=== PATIENT | female | born 1950 | race Caucasian/White ===

== ENCOUNTER 2017-11-23 14:37 | Emergency (ER) | payer MEDICARE, MEDICAID ==
[~2017-11-23] VITALS: Ht 165.1 cm; Wt 125.0 kg
[~2017-11-23 14:37] MED LIST: ASPIRIN EC81 M1 PO; ATIVAN1 MG PO; CALCIUM 600+D T1 TA1 PO; CENTRUM SILVER1 TA2 PO; CHANTIX 1 MG TAB1 MG PO; DILAUDID2 MG PO; DOXYCYCLINE HY100 M2 PO; EFFEXOR100 MG PO; KLONOPIN1 MG PO; MAXZIDE-25 MG T1 TAB PO; METOPROLOL TART50 MG PO; PRILOSEC20 MG PO; VENTOLIN HFA18 GM INH
[2017-11-23 15:17] VITALS: Ht 165.1 cm; Wt 125.0 kg
[2017-11-23] MEDS ORDERED: BENZONATATE200 MG PO (15:19)
[2017-11-23] MEDS ORDERED: BUPROPION XL300 MG PO (15:19)
[2017-11-23] MEDS ORDERED: ADVAIR 250/501 DISK INH (15:20)
[2017-11-23] MEDS ORDERED: VALIUM10 MG PO (15:20)
[2017-11-23] MEDS ORDERED: FLUTICASONE PRO16 GM NASAL (15:20)
[2017-11-23] MEDS ORDERED: LASIX40 MG PO (15:21)
[2017-11-23] MEDS ORDERED: IPRAT-ALBUT 0.5-3 ML UPD (15:21)
[2017-11-23] MEDS ORDERED: PREDNISONE20 MG PO (15:22)
[2017-11-23] MEDS ORDERED: KLOR-CON 1010 MEQ PO (15:22)
[2017-11-23] MEDS ORDERED: NICODERM C1 PATCH .3 TRANSDERM (15:22)
[2017-11-23] MEDS ORDERED: PROTONIX40 MG PO (15:22)
[2017-11-23] MEDS ORDERED: SPIRIVA RESPIMAT4 G1 INH (15:23)
[2017-11-23] MEDS ORDERED: ZANAFLEX2 M1 PO (15:23)
[2017-11-23] MEDS ORDERED: REXULTI1 MG PO (15:23)
[2017-11-23] MEDS ORDERED: PROAIR HFA8.5 GM INH (15:23)
[2017-11-23] MEDS ORDERED: ULTRAM50 MG PO (15:24)
[2017-11-23] MEDS ORDERED: EFFEXOR75 MG PO (15:24)
[2017-11-23 16:16] LABS: BASOPHILS 0.3 % (0-2); EOSINOPHILS 4.4 % (0-7); HEMATOCRIT 37.5 % (36.0-48.0); HEMOGLOBIN 11.7 g/dL (12-16); IMMATURE GRANULOCYTES 0.8 % (0-5); LYMPHOCYTES 45.3 % (15-50); MCH 30.6 pg (26.0-34.0); MCHC 31.2 g/dL (31.0-37.0); MCV 98.2 fL (80.0-100.0); MEAN PLATELET VOLUME 9.1 fL (7.4-10.4); MONOCYTES 7.5 % (2-11); NEUTROPHILS 41.7 % (40-80); PLATELET COUNT 322 10x3/uL (130-400); RBC 3.82 10x6/uL (4.00-5.40); RDW 14.2 % (11.5-14.5); WBC 14.1 10x3/uL (4.8-10.8)
[2017-11-23 16:48] LABS: APPEARANCE CLEAR (CLEAR); BILIRUBIN NEGATIVE (NEGATIVE); COLOR YELLOW (YELLOW); GLUCOSE NEGATIVE (NEGATIVE); KETONE NEGATIVE (NEGATIVE); NITRITE NEGATIVE (NEGATIVE); PROTEIN NEGATIVE (NEGATIVE); UROBILINOGEN NORMAL (NORMAL)
[2017-11-23 16:56] LABS: ALBUMIN 3.2 g/dL (3.4-5.0); ALKALINE PHOSPHATASE 121 U/L (46-116); ALT (SGPT) 27 U/L (10-68); BILIRUBIN - TOTAL 0.13 mg/dL (0.2-1.3); CALC OSMOLALITY 290 mosm/kg (275-300); CALCIUM 8.5 mg/dL (8.5-10.1); CARBON DIOXIDE 34.8 mmol/L (21.0-32.0); CHLORIDE - SERUM 105 mmol/L (98-107); CREATININE - SERUM 1.2 mg/dL (0.6-1.3); GLUCOSE 77 mg/dL (74-106); POTASSIUM - SERUM 3.7 mmol/L (3.5-5.1); PROTEIN - SERUM 6.4 g/dL (6.4-8.2); SODIUM 144 mmol/L (136-145); UREA NITROGEN 26 mg/dL (7-18); eGFR NON AFRICAN AMERICAN 47 mL/min (90-120)
[2017-11-23 17:02] LABS: CREATINE KINASE 25 UL (21-215); LIPASE 98 U/L (73-393); PRO BNP 991 pg/mL (0-125); TROPONIN-I < 0.017 ng/mL (0.000-0.060)
[2017-11-23 18:00] VITALS: BP 124/62
== END 2017-11-23 18:04 | disposition home or self-care (01) ==
LOC: D.ER 14:37
PROVIDERS: Family Medicine
DX: J44.9 Chronic obstructive pulmonary disease, unspecified (principal); S22.059A Unspecified fracture of T5-T6 vertebra, initial encounter for closed fracture; X58.XXXA Exposure to other specified factors, initial encounter; Y93.9 Activity, unspecified; Y92.9 Unspecified place or not applicable; I10 Essential (primary) hypertension; K21.9 Gastro-esophageal reflux disease without esophagitis

== ENCOUNTER 2017-12-09 08:58 | Inpatient (IN) | payer MEDICARE, MEDICAID ==
[~2017-12-09] VITALS: Ht 165.1 cm; Wt 124.2 kg
[2017-12-09] VITALS (8 sets, daily range): BP systolic 115–172; BP diastolic 68–98
--- NOTE | ~2017-12-09 | EC ---
PATIENT:ABIMAEL BISWAS DATE OF SERVICE: 12/09/17 SEX: F MEDICAL RECORD: [id number] DATE OF : [birth year] LOCATION:D.M2 D.211 AGE OF PATIENT: 67 ADMISSION DATE: 12/09/17 REFERRING PHYSICIAN: INTERPRETING PHYSICIAN: ANNETTE LOVELACE MD ECHOCARDIOGRAM REPORT ECHO CHARGES 4 ECHO COMPLETE Date: 12/09 CLINICAL DIAGNOSIS: CHF ECHOCARDIOGRAPHIC MEASUREMENTS (adult normal given) AC root (d.<3.7cm) 3.3 cm LV Septum d (<1.2 cm> 1.3 cm Valve Excursion 1.3 cm LV Septum (systole) 2.2 cm Left Atria (s.<4.0cm> 2.8 cm LVPW d(<1.2cm) 1.5 cm RV (d.<2.3cm) 3.5 cm LVPW (sytole) 1.8 cm LV diastole(<5.6CM) 4.6 cm MV E-F(>70mm/sec) 1.9 cm LV systole 3.6 cm LVOT Diameter 2.3 cm MV exc.(>10mm) cm Est.ejection fraction (50-75%) % DOPPLER: LVIT cm/sec A 96 cm/sec E 53 cm/sec LA cm/sec RVSP 17 mmHg LVOT 111 cm/sec AOP1/2T m/s Asc. Ao 159 cm/sec RVOT 78 cm/sec RA cm/sec PA 86 cm/sec AV Gradient Peak 10.1 mmHg AV Mean 4.9 mmHg AV Area 2.5 cm MV Gradient Peak 4.59 mmHg MV Mean 1.69 mmHg MV Area cm COMMENTS: Saw Runner: Furnace Converter: 1 Dr. Lovelace TAPE# PACS Pericardial Effusion N DATE OF SERVICE: 12/09/2017 ECHOCARDIOGRAM FINDINGS: 1. Left ventricular chamber size is within normal limits. Left ventricular systolic function is normal. Overall ejection fraction estimated at 60%. 2. Left atrium, right atrium, and right ventricle chamber sizes are within normal limits. 3. Valvular structures have normal structure and motion. ECHOCARDIOGRAM REPORT [id number] ABIMAEL BISWAS 4. Doppler interrogation reveals no significant valvular insufficiency or stenosis. 5. No evidence of pericardial effusion or left ventricular thrombus. TRANSINT:[id number] Voice Confirmation ID: [id number] DOCUMENT ID: [id number] ANNETTE LOVELACE MD at 1230 CC: [id number] DICTATION DATE: 12/09/17 1551 GRADUATE TEACHING ASSOCIATE: 12/09/17 1648 ADM IN [place] [id number] [place] [id number]
[~2017-12-09 08:58] MED LIST changes: +ADVAIR 250/501 DISK INH; +BENZONATATE200 MG PO; +BUPROPION XL300 MG PO; +EFFEXOR75 MG PO; +FLUTICASONE PRO16 GM NASAL; +IPRAT-ALBUT 0.5-3 ML UPD; +KLOR-CON 1010 MEQ PO; +LASIX40 MG PO; +NICODERM C1 PATCH .3 TRANSDERM; +PREDNISONE20 MG PO; +PROAIR HFA8.5 GM INH; +PROTONIX40 MG PO; +REXULTI1 MG PO; +SPIRIVA RESPIMAT4 G1 INH; +ULTRAM50 MG PO; +VALIUM10 MG PO; +ZANAFLEX2 M1 PO
[2017-12-09 10:15] LABS: BASOPHILS 0.3 % (0-2); EOSINOPHILS 9.2 % (0-7); HEMATOCRIT 37.2 % (36.0-48.0); HEMOGLOBIN 11.9 g/dL (12-16); IMMATURE GRANULOCYTES 0.2 % (0-5); LYMPHOCYTES 19.4 % (15-50); MCH 30.7 pg (26.0-34.0); MCV 96.1 fL (80.0-100.0); MEAN PLATELET VOLUME 8.7 fL (7.4-10.4); MONOCYTES 2.6 % (2-11); NEUTROPHILS 68.3 % (40-80); PLATELET COUNT 260 10x3/uL (130-400); RBC 3.87 10x6/uL (4.00-5.40); RDW 13.5 % (11.5-14.5); WBC 9.3 10x3/uL (4.8-10.8)
[2017-12-09 10:36] LABS: ALBUMIN 3.3 g/dL (3.4-5.0); ANION GAP 8.3 mmol/L (8-16); BILIRUBIN - TOTAL 0.25 mg/dL (0.2-1.3); CALCIUM 9.1 mg/dL (8.5-10.1); CARBON DIOXIDE 32.9 mmol/L (21.0-32.0); CREATININE - SERUM 1.4 mg/dL (0.6-1.3); POTASSIUM - SERUM 4.2 mmol/L (3.5-5.1); PROTEIN - SERUM 7.3 g/dL (6.4-8.2)
[2017-12-09] MEDS ORDERED: EFFEXOR XR75 MG PO (19:53)
[2017-12-10 00:35] VITALS: BP 131/70
[2017-12-10 05:15] VITALS: BP 125/68
[2017-12-10 06:35] VITALS: BP 135/73; BMI 45.3
[2017-12-10 08:49] VITALS: BP 146/73
[2017-12-10 10:58] VITALS: BMI 45.2
[2017-12-10 11:16] VITALS: BP 126/76
[2017-12-10 12:36] VITALS: Ht 165.1 cm; Wt 124.2 kg
[2017-12-10 14:09] LABS: APPEARANCE CLEAR (CLEAR); BILIRUBIN NEGATIVE (NEGATIVE); COLOR YELLOW (YELLOW); GLUCOSE NEGATIVE (NEGATIVE); KETONE NEGATIVE (NEGATIVE); NITRITE NEGATIVE (NEGATIVE); PROTEIN NEGATIVE (NEGATIVE); SPECIFIC GRAVITY 1.015 (1.005-1.020); UROBILINOGEN NORMAL (NORMAL)
[2017-12-10 14:20] LABS: UDS - AMPHET NEGATIVE QUAL (NEGATIVE); UDS - BARB NEGATIVE QUAL (NEGATIVE); UDS - BENZO POSITIVE QUAL (NEGATIVE); UDS - COCAINE NEGATIVE QUAL (NEGATIVE); UDS - OPIATE POSITIVE QUAL (NEGATIVE); UDS - PCP NEGATIVE QUAL (NEGATIVE); UDS - THC NEGATIVE QUAL (NEGATIVE)
[2017-12-10 20:21] VITALS: BP 142/78
[2017-12-11 00:31] VITALS: BP 142/76
[2017-12-11 04:37] VITALS: BP 128/69
[2017-12-11 07:51] LABS: ANION GAP 13.4 mmol/L (8-16); BASOPHILS 0 % (0-2); CALCIUM 8.6 mg/dL (8.5-10.1); CARBON DIOXIDE 31.5 mmol/L (21.0-32.0); CREATININE - SERUM 1.6 mg/dL (0.6-1.3); EOSINOPHILS 0 % (0-7); HEMATOCRIT 34.3 % (36.0-48.0); IMMATURE GRANULOCYTES 0.2 % (0-5); LYMPHOCYTES 13.4 % (15-50); MCH 30.5 pg (26.0-34.0); MCHC 32.1 g/dL (31.0-37.0); MEAN PLATELET VOLUME 9.1 fL (7.4-10.4); NEUTROPHILS 82.4 % (40-80); POTASSIUM - SERUM 3.9 mmol/L (3.5-5.1); RBC 3.61 10x6/uL (4.00-5.40); RDW 13.8 % (11.5-14.5); WBC 11.6 10x3/uL (4.8-10.8)
[2017-12-11 07:52] VITALS: BP 148/85
[2017-12-11 07:53] LABS: PLATELET COUNT 321 10x3/uL (130-400)
[2017-12-11 12:15] VITALS: BP 128/73
[2017-12-11 16:12] VITALS: BP 155/91
[2017-12-11 21:39] VITALS: BP 164/83
[2017-12-12 01:29] VITALS: BP 130/85
[2017-12-12 04:30] VITALS: BP 138/76
[2017-12-12 04:52] LABS: BASOPHILS 0 % (0-2); EOSINOPHILS 0 % (0-7); HEMATOCRIT 35.1 % (36.0-48.0); HEMOGLOBIN 11.4 g/dL (12-16); IMMATURE GRANULOCYTES 0.6 % (0-5); LYMPHOCYTES 13.6 % (15-50); MCH 30.6 pg (26.0-34.0); MCHC 32.5 g/dL (31.0-37.0); MCV 94.1 fL (80.0-100.0); MONOCYTES 3.6 % (2-11); NEUTROPHILS 82.2 % (40-80); PLATELET COUNT 302 10x3/uL (130-400); RBC 3.73 10x6/uL (4.00-5.40); RDW 13.6 % (11.5-14.5); WBC 10.9 10x3/uL (4.8-10.8)
[2017-12-12 05:13] LABS: ANION GAP 13.2 mmol/L (8-16); CARBON DIOXIDE 31.7 mmol/L (21.0-32.0); CREATININE - SERUM 1.6 mg/dL (0.6-1.3); POTASSIUM - SERUM 3.9 mmol/L (3.5-5.1)
[2017-12-12 05:28] LABS: % SATURATION 15 % (15-55); IRON 61 ug/dl (35-150); TOTAL IRON BIND CAPACITY 392 ug/dl (260-445); UNSAT IRON BIND CAPACITY 331 ug/dl (150-375)
[2017-12-12 08:03] VITALS: BP 132/97
[2017-12-12 11:55] VITALS: BP 117/80
[2017-12-12 12:21] LABS: IMMUNOGLOBULIN A 202 mg/dL (87-352); IMMUNOGLOBULIN G 665 mg/dL (700-1600)
[2017-12-12 15:39] VITALS: BP 136/94
[2017-12-12 20:31] VITALS: BP 180/97
[2017-12-13 01:10] VITALS: BP 191/100
[2017-12-13 04:00] VITALS: BP 188/96
[2017-12-13 04:45] LABS: BASOPHILS 0.1 % (0-2); EOSINOPHILS 0 % (0-7); HEMATOCRIT 35.8 % (36.0-48.0); HEMOGLOBIN 11.6 g/dL (12-16); LYMPHOCYTES 19.3 % (15-50); MCH 30.7 pg (26.0-34.0); MCHC 32.4 g/dL (31.0-37.0); MCV 94.7 fL (80.0-100.0); MEAN PLATELET VOLUME 8.9 fL (7.4-10.4); MONOCYTES 6.9 % (2-11); NEUTROPHILS 72.7 % (40-80); PLATELET COUNT 321 10x3/uL (130-400); RBC 3.78 10x6/uL (4.00-5.40); RDW 13.4 % (11.5-14.5); WBC 9.9 10x3/uL (4.8-10.8)
[2017-12-13 04:57] LABS: ANION GAP 12.7 mmol/L (8-16); CARBON DIOXIDE 31.6 mmol/L (21.0-32.0); CREATININE - SERUM 1.6 mg/dL (0.6-1.3)
[2017-12-13 05:03] LABS: POTASSIUM - SERUM 3.3 mmol/L (3.5-5.1)
[2017-12-13 08:05] VITALS: BP 165/107
[2017-12-13 11:41] VITALS: BP 149/75
[2017-12-13] MEDS ORDERED: IPRAT-ALBUT 0.5-3 ML UPD (13:34)
[2017-12-13] MEDS ORDERED: SYMBICORT 16010.2 GM INH (13:34)
[2017-12-13] MEDS ORDERED: PROTONIX40 MG PO (13:35)
[2017-12-13] MEDS ORDERED: MUCINEX DM ER1 EAC1 PO (13:35)
[2017-12-13] MEDS ORDERED: SINGULAIR10 MG PO (13:36)
[2017-12-13] MEDS ORDERED: VIBRAMYCIN50 MG PO (13:37)
[2017-12-13] MEDS ORDERED: DALIRESP500 MCG PO (13:38)
[2017-12-13] MEDS ORDERED: FLUTICASONE PRO16 GM NASAL (13:38)
[2017-12-13] MEDS ORDERED: PROAIR HFA8.5 GM INH (13:40)
[2017-12-13] MEDS ORDERED: PROMETHAZINE W473 M1 PO (13:43)
[2017-12-13] MEDS ORDERED: PREDNISONE10 MG PO (13:44)
[2017-12-13] MEDS ORDERED: DURAGESIC1 PATCH .1 TRANSDERM (15:30)
[2017-12-13 16:14] VITALS: BP 172/102
[2017-12-14 20:06] LABS: IMMUNOGLOBULIN E 15 IU/mL (0-100)
== END 2017-12-13 18:27 | disposition home or self-care (01) | DRG 291 ==
LOC: D.ER 08:58 → D.M2 13:24 → D.EDHOLD 13:24 → D.M2 18:47
PROVIDERS: Emergency Medicine; Internal Medicine Nephrology; Internal Medicine Pulmonary Disease
DX: I13.0 Hypertensive heart and chronic kidney disease with heart failure and stage 1 through stage 4 chronic kidney disease, or unspecified chronic kidney disease (principal); J96.22 Acute and chronic respiratory failure with hypercapnia; I50.21 Acute systolic (congestive) heart failure; J96.21 Acute and chronic respiratory failure with hypoxia; J44.1 Chronic obstructive pulmonary disease with (acute) exacerbation; N17.9 Acute kidney failure, unspecified; M48.54XA Collapsed vertebra, not elsewhere classified, thoracic region, initial encounter for fracture; N18.9 Chronic kidney disease, unspecified; K21.9 Gastro-esophageal reflux disease without esophagitis; F41.8 Other specified anxiety disorders; F10.10 Alcohol abuse, uncomplicated; M50.30 Other cervical disc degeneration, unspecified cervical region; D64.9 Anemia, unspecified; J30.9 Allergic rhinitis, unspecified; I25.10 Atherosclerotic heart disease of native coronary artery without angina pectoris; J20.9 Acute bronchitis, unspecified; T17.990A Other foreign object in respiratory tract, part unspecified in causing asphyxiation, initial encounter

== ENCOUNTER 2018-01-10 19:39 | Inpatient (IN) | payer MEDICARE, MEDICAID ==
[~2018-01-10] VITALS: Ht 165.1 cm; Wt 133.0 kg
--- NOTE | ~2018-01-10 | HEMODYNAMI ---
PATIENT:ABIMAEL BISWAS MEDICAL RECORD: [id number] : 48 LOCATION:D. D.2109 ADMISSION DATE: 01/10/18 Generatedon:01/12/201811:00 Patient name: ABIMAEL BISWAS Patient #: [id number] SSN: : 1950 Date of study: 01/12/2018 Page: Of Hemodynamic Procedure Report Patient Data Patient Demographics Procedure consent was obtained First Name: ABIMAEL Gender: Female Last Name: ZULAY : 1950 [facility] Initial: KATLYN Age: 67 year(s) Patient #: [id number] Race: Unknown Additional ID: [id number] Contact details [address]: [address] [place] [address] State: [place] City: [place] Zip code: [address] Admission Admission Data Admission Date: 01/10/2018 Admission Time: 21:51 Room #: D.2109 Procedure Procedure Types Cath Procedure Diagnostic Procedure LHC LHC w/Coronaries Procedure Description Procedure Date Procedure Date: 01/12/2018 Procedure Start Time: 10:47 Procedure End Time: 10:59 Procedure Staff Name Function Jose Lovelace MD Performing Physician Christie Bird RT Monitor Therese Palacios RT Scrub Ady Schaefer RN Nurse Procedure Data Cath Procedure Fluoroscopy Diagnostic fluoroscopy Total fluoroscopy Time: 1.3 time: 1.3 min min Diagnostic fluoroscopy Total fluoroscopy dose: 206 dose: 206 mGy mGy Contrast Material Contrast Material Type Amount (ml) Isovue 300 40 Entry Location Entry Primary Successful Side Size Upsize Upsize Entry Closure Garcia ccessful Closure Location (Fr) 1 (Fr) 2 (Fr) Remarks Device Remarks Radial Right 6 Fr Mechanical artery Short Compression Estimated blood loss: 10 ml Diagnostic catheters Device Type Used For End Catheter Placement DIAGNOSTIC [place] 110cm 5 Procedure Fr catheter ([id number]) Procedure Complications No complications Procedure Medications Medication Administration Route Dosage Oxygen NC 3 l/min Heparin Flush Bag added to field 2 bags (1000units/500ml NS) 0.9% NaCl I.V. 100 ml/hr Radial Cocktail added to field 1 syringe (Verapomil 2mg/Nitro 400mcg/Heparin 1500units) Fentanyl I.V. 50 mcg Versed I.V. 1 mg Fentanyl I.V. 50 mcg Versed I.V. 1 mg Lopressor I.V. 5 mg Radial Cocktail I.A. 1 syringe (Verapomil 2mg/Nitro 400mcg/Heparin 1500units) Hemodynamics Rest Heart Rate: 103 (bpm) Snapshots Pre Cath Intra NCS Post Cath Vital Signs Time Heart Resp SPO2 etCO2 NIBP (mmHg) Rhythm Pain Sedation Rate (ipm) (%) (mmHg) Status Level (bpm) 10:24:17 100 13 92 0 161/89(122) NSR 0 (11) 10(A) , No pain 10:29:02 101 18 90 0 160/88(107) NSR 0 (11) 10(A) , No pain 10:33:49 100 18 89 0 142/95(113) NSR 0 (11) 10(A) , No pain 10:38:31 102 17 88 0 162/84(121) NSR 0 (11) 10(A) , No pain 10:43:18 99 18 89 0 147/78(96) NSR 0 (11) 10(A) , No pain 10:49:31 99 17 87 0 147/74(95) NSR 0 (11) 10(A) , No pain 10:54:20 109 18 87 0 134/70(88) NSR 0 (11) 10(A) , No pain 10:59:03 96 18 90 0 145/75(109) NSR 0 (11) 10(A) , No pain Medications Time Medication Route Dose Verified Delivered Reason Notes Effectiveness by by 10:25:03 Oxygen NC 3 l/min Jose Garsia Per [place] Schaefer RN physician 10:25:18 Heparin Flush added 2 bags Jose Garsia used for Bag to [place] Schaefer RN procedure (1000units/500ml field NS) 10:25:27 0.9% NaCl I.V. 100 Jose Garsia Per ml/hr [place] Schaefer RN physician 10:25:35 Radial Cocktail added 1 Jose Garsia used for (Verapomil to syringe [place]ia Schaefer RN procedure 2mg/Nitro field 400mcg/Heparin 1500units) 10:45:45 Fentanyl I.V. 50 mcg Jose Garsia for sedation Albania Schaefer RN 10:45:53 Versed I.V. 1 mg Jose Garsia for sedation Albania Schaefer RN 10:48:56 Fentanyl I.V. 50 mcg Jose Garsia for sedation [place] Schaefer RN 10:49:00 Versed I.V. 1 mg Jose Garsia for sedation Alban[place] Schaefer RN 10:50:17 Lopressor I.V. 5 mg Jose Garsia Per [place] Schaefer RN physician 10:54:02 Radial Cocktail I.A. 1 Jose Garcia for (Verapomil syringe [place] Lovelace MD vasodilation 2mg/Nitro 400mcg/Heparin 1500units) Procedure Log Time Note 10:00:16 Christie Bird RT(R) sent for patient. Start room use. 10:22:38 Vital chart was started 10:23:22 Time tracking: Regular hours (M-F 7:00 - 5:00) 10:23:26 Plan of Care:Hemodynamics will remain stable., Cardiac rhythm will remain stable., Comfort level will be maintained., Respiratory function will remain adequate., Patient/ family verbilizes understanding of procedure., Procedure tolerated without complication., Recovers from procedure without complications.. 10:23:31 Patient received from Med II to CCL 3 Alert and oriented. Tansferred to table in Supine position. 10:23:33 Warm blankets applied, and jane hugger turned on for patient comfort. 10:23:33 Correct patient and procedure confirmed by team. 10:23:34 Signed procedure consent form obtained from patient. 10:23:36 ECG and BP/O2 sat monitors applied to patient. 10:23:38 Baseline sample Acquired. 10:23:39 Full Disclosure recording started 10:23:43 H&P Date Dictated: 01/12/2018 New H&P dictated by physician.. 10:23:45 Pre-procedure instructions explained to patient. 10:23:45 Pre-op teaching completed and patient verbalized understanding. 10:23:47 Family in patients room. 10:23:48 Patient NPO since Midnight. 10:23:50 Is the patient allergic to Iodine/contrast media? Yes. 10:23:50 Was the patient premedicated? Yes 10:23:52 Is patient on blood thinner?Yes 10::55 ACC The patient was administered the following blood thiners within the last 24 hours: ACCPlavix 10::57 Patient diabetic? No. 10::59 Previous problem with sedation/anesthesia? No ? 10:24:02 Snore? Yes 10:24:02 Sleep apnea? Yes 10:24:03 Deviated septum? No 10:24:04 Opens mouth fully? Yes 10:24:05 Sticks out tongue? Yes 10:24:28 Airway obstruction? Yes copd asthma emphysema bronchitis 10:24:37 Dentures? Yes out 10:24:47 Pre procedure: right dorsailis pedis pulse 1+ Palpable, but thready & weak; easily obliterated 10:24:50 Pre procedure: left dorsailis pedis pulse 1+ Palpable, but thready & weak; easily obliterated 10:24:54 Patient pain scale 0/10 ?. 10:25:01 IV patent on arrival in left forearm with 0.9% NaCl at [facility]. 10:25:03 Oxygen 3 l/min NC was administered by Ady Schaefer RN; Per physician; 10:25:03 Lab results completed and on chart. 10:25:07 Right Radial & Right Groin area was prepped with chlora-prep and draped in sterile fashion 10:25:09 Alarms reviewed by R. N. 10:25:09 Sharps counted by scrub and verified by R.N. 10:25:18 Heparin Flush Bag (1000units/500ml NS) 2 bags added to field was administered by Ady Schaefer RN; used for procedure; 10:25:27 0.9% NaCl 100 ml/hr I.V. was administered by Ady Schaefer RN; Per physician; 10:25:35 Radial Cocktail (Verapomil 2mg/Nitro 400mcg/Heparin 1500units) 1 syringe added to field was administered by Ady Schaefer RN; used for procedure; 10:40:45 Zero performed for pressure channel P1 10:45:45 Fentanyl 50 mcg I.V. was administered by Ady Schaefer RN; for sedation; 10:45:53 Versed 1 mg I.V. was administered by Ady Schaefer RN; for sedation; 10:46:32 Physician arrived 10:46:32 --------ALL STOP TIME OUT------ 10:46:34 Final Timeout: patient, procedure, and site verified with staff and physician. All members of the team are in agreement. 10:46:36 Right Radial & Right Groin site verified by team. 10:46:41 Physical assessment completed. ASA score P 3 - A patient with severe systemic disease as per Jose Lovelace MD. 10:46:45 Sedation plan: IV Moderate Sedation Medication:Versed, Fentanyl 10:47:01 Use device set Radial Dx or PCI 10:47:02 ACIST Syringe (27394) opened to sterile field. 10:47:03 Medline Cath Pack ([id number]) opened to sterile field. 10:47:03 Bag Decanter (2002S) opened to sterile field. 10:47:04 DIAGNOSTIC WIRE .035 260cm J wire (702403) opened to sterile field. 10:47:05 ACIST Hand Control (24485) opened to sterile field. 10:47:05 ACIST Manifold (86929) opened to sterile field. 10:47:06 Tegaderm 4 x 4 (1626W) opened to sterile field. 10:47:07 MBrace Wrist Support ([id number]) opened to sterile field. 10:47:07 NEEDLE Cook 21G 4cm Radial (U64660) opened to sterile field. 10:47:13 SHEATH 6Fr Prelude Radial ([id number]) opened to sterile field. 10:47:15 Procedure started. 10:47:40 Local anesthetic to right radial artery with Lidocaine 2% by Jose Lovelace MD.INITIAL ACCESS ONLY 10:47:52 A 6 Fr Short sheath was inserted into the Right Radial artery 10:48:56 Fentanyl 50 mcg I.V. was administered by Ady Schaefer RN; for sedation; 10:49:00 Versed 1 mg I.V. was administered by Ady Schaefer RN; for sedation; 10:50:17 Lopressor 5 mg I.V. was administered by Ady Schaefer RN; Per physician; 10:52:57 A DIAGNOSTIC [place] 110cm 5 Fr catheter (116520) was advanced over the wire and used for Procedure. 10:53:05 J wire advanced. 10:53:30 LV angiography performed. 10:54:02 Radial Cocktail (Verapomil 2mg/Nitro 400mcg/Heparin 1500units) 1 syringe I.A. was administered by Jose Lovelace MD; for vasodilation; 10:54:27 LV gram done using LUNSFORD 10:55:05 EF : 30 % 10:55:16 RCA angiography performed. 10:56:02 LCA angiography performed. 10:56:32 Catheter removed. 10:56:47 Sheath removed intact; hemostasis achieved with Mechanical Compression to the Right Radial artery. 10:56:50 Procedure ended.(Physican Out) 10:57:04 Fluoroscopy time 01.30 minutes. 10:57:09 Fluoroscopy dose: 206 mGy 10:57:09 Flurop Dose total: 206 10:57:14 Contrast amount:Isovue 300 40ml. 10:57:21 TR band inflated with 13cc of air. 10:57:51 Post right radial artery:stable 10:57:59 Post-procedure physical assessment completed. ASA score P 2 - A patient with mild systemic disease as per Jose Lovelace MD. 10:58:03 Post procedure rhythm: unchanged. 10:58:07 Estimated blood loss: 10 ml 10:58:09 Post procedure instruction explained to patient.Patient verbalizes understanding. 10:58:17 Procedure and supply charges have been captured, reviewed, submitted and are correct. 10:58:58 Procedure Complication : No complications 10:59:02 Vital chart was stopped 10:59:02 See physician's report for complete and final results. 10:59:04 Report given to Pre/Post Procedure Room. 10:59:08 Patient transfered to Pre/Post Procedure Room with Stretcher. 10:59:11 Procedure ended. 10:59:11 Full Disclosure recording stopped 10:59:14 End room use (Document Last) Device Usage Item Name Manufacture Quantity Catalog Number Hospital Part Current M inimal Lot# / Charge Number Stock Stock Serial# Code ACIST Syringe Acist 1 31091 441974 068752 872339 2 0 (60734) Medical Systems Inc Medline Cath Cardinal 1 [id number] 322637 49858 141731 5 Conisus ([id number]) Bag Decanter Microtek 1 823057 74458 402070 5 () Medical Inc. DIAGNOSTIC WIRE St Jcarlos 1 711599 805626 552839 884582 3 0 .035 260cm J wire (931325) ACIST Hand Acist 1 98710 206186 502588 756896 5 Control (21121) Medical Systems Inc ACIST Manifold Acist 1 14984 513107 694736 007930 5 (38885) Medical Systems Inc Tegaderm 4 x 4 3M 1 1626W 331613 142976 589961 5 (1626W) MBrace Wrist Advanced 1 140-0250-00 411582 76296 800021 5 Support Vascular ([id number]) Dynamics NEEDLE Cook 21G Cook Medical 1 D96611 568011 311541 775402 5 4cm Radial (B07659) SHEATH 6Fr Merit 1 [id number] 204093 213610 054621 5 Prelude Radial Medical ([id number]) DIAGNOSTIC Terumo 1 56-1249 658059 407032 561118 5 [place] 110cm 5 Fr catheter (269364) Signature Audit [place] Stage Time Signature Unsigned Intra-Procedure 01/12/2018 Christie Bird 11:00:27 AM RT(R) Signatures Monitor : Christie Bird Signature : RT Date : Time : [place] [address] [facility] [place] [address]
--- NOTE | ~2018-01-10 | OP ---
PATIENT NAME: ABIMAEL BISWAS MEDICAL RECORD: [id number] :48 LOCATION:D.M2 D.2109 ADMISSION DATE:01/10/18 SURGEON: ANNETTE ORTIZ MD DATE OF OPERATION: 01/12/2018 PROCEDURES: 1. Left heart catheterization. 2. Selective coronary angiography. 3. Left ventriculogram. INDICATION: Chest pain, elevated troponin, non-Q-wave myocardial infarction. PROCEDURE IN DETAIL: After informed consent was obtained and after a detailed description of the risks, benefits as well as alternative therapies, the patient elected to proceed with angiogram and heart catheterization. The right radial area was prepped and draped in normal sterile fashion. Right radial artery was cannulated via modified Seldinger technique with placement of 5-Faroese sheath. All catheters exchanged through this sheath. FINDINGS: Left ventriculogram was performed in standard 30-degree LUNSFORD view reveals good cardiac wall motion throughout all segments. Overall ejection fraction estimated 60%. SELECTIVE CORONARY ANGIOGRAPHY: Left main, left anterior descending, left circumflex, and right coronary artery are all smooth-walled vessels with no angiographic evidence of coronary artery disease. OVERALL IMPRESSION: 1. No angiographic evidence of coronary artery disease. 2. Normal left heart pressures. 3. Normal left ventricular systolic function. Her chest pain and elevated troponin are demand ischemia from her lung disease. No coronary disease is present. TRANSINT:[id number] Voice Confirmation ID: [id number] DOCUMENT ID: [id number] ANNETTE ORTIZ MD at 1642 CC: [id number] DICTATION DATE: 01/12/18 1102 TITLE CHECKER: 01/12/18 1254 ADM IN [place] [address] [place] [address]
--- NOTE | ~2018-01-10 | CN ---
PATIENT NAME:ABIMAEL BRITTON MEDICAL RECORD: [id number] : [birth year] LOCATION:D.M2 D.2109 ADMIT DATE: 01/10/18 ACCOUNT: [id number] CONSULTING PHYSICIAN: ANNETTE ORTIZ MD REFERRING PHYSICIAN: HARPREET REAGAN MD DATE OF CONSULTATION: 01/11/2018 DIAGNOSES: 1. Non-Q-wave myocardial infarction. 2. Coronary artery disease. 3. Chronic obstructive pulmonary disease. 4. Smoking history. 5. Hypertension. HISTORY OF PRESENT ILLNESS: Ms. Britton presents with increasing shortness of breath and increasing episodes of chest pressure. Her troponin is positive for a non-Q-wave myocardial infarction. She has no history of ischemic heart disease. Her chest pressure has been going on for over a month now in an increasing fashion. PHYSICAL EXAMINATION: GENERAL APPEARANCE: Well-nourished, well-developed, appears stated age. Level of distress, comfortable. PSYCHIATRIC: Mental status, alert, normal affect. Orientation, oriented to time, place and person. EYES: Lids and conjunctiva, noninjected. No discharge, no pallor. ENT: Lips, teeth, gums, normal dentition. Oropharynx, no cyanosis, no pallor. NECK: Carotid arteries, bilateral normal upstroke, no bruits, no thrills. JUGULAR VEINS: No jugular venous pressure or distention. CERVICAL LYMPH NODES: Nontender, nonenlarged. THYROID: Not enlarged. Nontender. No nodules. LUNGS: Respiratory effort, unlabored. CHEST: Normal curvature. No thoracic deformity. No chest wall tenderness. Percussion, resonant. Auscultation, clear. No wheezes, no rales, no rhonchi. CARDIOVASCULAR: Precordial exam, nondisplaced. No heaves or pericardial thrills. Rate and rhythm, regular. Heart sounds, normal S1, normal S2. No S3, no gallop, no rub. Systolic murmur, not heard. Diastolic murmur, not heard. EXTREMITIES: No cyanosis, no edema. Peripheral pulses, full and equal in all extremities, except as noted. No bruits appreciated. ABDOMEN: Soft, nondistended. Normal aorta. No bruit. Nontender. No masses. Liver, nontender, no hepatomegaly. Spleen, nontender, no splenomegaly. MUSCULOSKELETAL: No joint tenderness. No joint swelling. No erythema. NEUROLOGICAL: Normal gait, normal strength, normal tone. SKIN: Warm and dry. REVIEW OF SYSTEMS: The patient reports easy bruising but reports no swollen glands. The patient reports no fever, no night sweats, no significant weight gain, no significant weight loss. No significant exercise tolerance. The patient reports no dry eyes, no irritation, no vision change. Patient reports no difficulty hearing and no ear pain. Patient reports no frequent nose bleeds or nose and sinus problems. Patient reports on arm pain on exertion. No shortness of breath while lying down. No history of heart murmur. Patient reports no cough, no wheezing or coughing up blood. Patient reports no abdominal pain, no vomiting. Normal appetite. No diarrhea and not vomiting blood. No nausea and no constipation. Patient reports no incontinence. No CONSULT REPORT [id number] ABIMAEL BRITTON difficulty urinating. No hematuria. No increased frequency. Patient reports no muscle aches. No weakness, no arthralgias, no back pain. No swelling of the extremities. Patient reports no abnormal mole, no jaundice, no rashes. Reports no loss of consciousness. No weakness and no numbness. No seizures, dizziness, or headaches. The patient reports no depression, no sleep disturbance, feeling safe in a relationship and no alcohol abuse. Patient reports on fatigue. Reports no runny nose or sinus pressure. No itching, no hives, and no frequent sneezing. OVERALL IMPRESSION: Non-Q-wave myocardial infarction. SHE DOES HAVE AN IODINE ALLERGY. WE WILL PRETREAT FOR HER IODINE ALLERGY. Proceed with coronary angiography. Further care depends upon findings of the angiography. TRANSINT:[id number] Voice Confirmation ID: [id number] DOCUMENT ID: [id number] ANNETTE ORTIZ MD at 1642 CC: [id number] DICTATION DATE: 01/11/18911 STAGE MANAGER: 01/11/18 0958 [facility] IN [place] [id number] [place] [address]
[~2018-01-10 19:39] MED LIST changes: +DALIRESP500 MCG PO; +DURAGESIC1 PATCH .1 TRANSDERM; +EFFEXOR XR75 MG PO; +MUCINEX DM ER1 EAC1 PO; +PREDNISONE10 MG PO; +PROMETHAZINE W473 M1 PO; +SINGULAIR10 MG PO; +SYMBICORT 16010.2 GM INH; +VIBRAMYCIN50 MG PO
[2018-01-10 20:49] LABS: ALBUMIN 2.9 g/dL (3.4-5.0); ANION GAP 8.7 mmol/L (8-16); BILIRUBIN - TOTAL 0.32 mg/dL (0.2-1.3); CALCIUM 8.8 mg/dL (8.5-10.1); CARBON DIOXIDE 36.5 mmol/L (21.0-32.0); CREATININE - SERUM 1.3 mg/dL (0.6-1.3); POTASSIUM - SERUM 4.2 mmol/L (3.5-5.1); PROTEIN - SERUM 6.9 g/dL (6.4-8.2)
[2018-01-10 21:00] LABS: TROPONIN-I 0.258 ng/mL (0.000-0.060)
[2018-01-10 21:28] LABS: BASOPHILS 0.4 % (0-2); EOSINOPHILS 6.3 % (0-7); HEMOGLOBIN 11.5 g/dL (12-16); IMMATURE GRANULOCYTES 0.9 % (0-5); LYMPHOCYTES 37.7 % (15-50); MCH 30.3 pg (26.0-34.0); MCHC 31.9 g/dL (31.0-37.0); MCV 94.7 fL (80.0-100.0); MEAN PLATELET VOLUME 9.3 fL (7.4-10.4); MONOCYTES 9.2 % (2-11); NEUTROPHILS 45.5 % (40-80); RDW 13.5 % (11.5-14.5); WBC 7.5 10x3/uL (4.8-10.8)
[2018-01-10 21:29] LABS: PLATELET COUNT 246 10x3/uL (130-400)
[2018-01-10 22:23] VITALS: BP 111/68
[2018-01-11 00:25] VITALS: BP 132/65; BMI 44.1
[2018-01-11 01:54] LABS: CKMB 2.7 U/L (0.0-3.6); CREATINE KINASE 70 UL (21-215)
[2018-01-11 01:56] LABS: TROPONIN-I 0.639 ng/mL (0.000-0.060)
[2018-01-11 05:06] VITALS: BP 126/68
[2018-01-11 07:32] LABS: CKMB 4.4 U/L (0.0-3.6); CREATINE KINASE 76 UL (21-215)
[2018-01-11 07:34] LABS: TROPONIN-I 0.803 ng/mL (0.000-0.060)
[2018-01-11 08:43] VITALS: BP 123/72
[2018-01-11 12:48] LABS: CKMB 5.3 U/L (0.0-3.6); CREATINE KINASE 91 UL (21-215)
[2018-01-11 12:49] LABS: TROPONIN-I 0.751 ng/mL (0.000-0.060)
[2018-01-11 13:35] VITALS: BP 137/89
[2018-01-11 16:17] VITALS: BP 127/70
[2018-01-11 21:24] VITALS: BP 112/58
[2018-01-12 00:57] VITALS: BP 149/79
[2018-01-12 05:52] VITALS: BP 141/95
[2018-01-12 07:59] VITALS: BP 145/87
[2018-01-12 09:30] VITALS: Ht 165.1 cm; Wt 133.0 kg
[2018-01-12 15:27] LABS: BASOPHILS 0.1 % (0-2); EOSINOPHILS 0.1 % (0-7); HEMATOCRIT 33.5 % (36.0-48.0); HEMOGLOBIN 10.6 g/dL (12-16); IMMATURE GRANULOCYTES 0.7 % (0-5); LYMPHOCYTES 16.7 % (15-50); MCH 29.9 pg (26.0-34.0); MCHC 31.6 g/dL (31.0-37.0); MCV 94.4 fL (80.0-100.0); MEAN PLATELET VOLUME 9.2 fL (7.4-10.4); MONOCYTES 7.2 % (2-11); NEUTROPHILS 75.2 % (40-80); PLATELET COUNT 282 10x3/uL (130-400); RBC 3.55 10x6/uL (4.00-5.40); RDW 13.9 % (11.5-14.5)
[2018-01-12 15:52] LABS: CREATININE - SERUM 1.4 mg/dL (0.6-1.3)
[2018-01-12 15:53] LABS: ALBUMIN 3.1 g/dL (3.4-5.0); ANION GAP 7.6 mmol/L (8-16); BILIRUBIN - TOTAL 0.15 mg/dL (0.2-1.3); CALCIUM 8.6 mg/dL (8.5-10.1); CARBON DIOXIDE 31.5 mmol/L (21.0-32.0); POTASSIUM - SERUM 4.1 mmol/L (3.5-5.1); PROTEIN - SERUM 6.3 g/dL (6.4-8.2)
[2018-01-12 20:00] VITALS: BP 135/60
[2018-01-13 04:17] VITALS: BP 130/69
[2018-01-13 05:57] LABS: BASOPHILS 0.1 % (0-2); EOSINOPHILS 0 % (0-7); HEMOGLOBIN 10.3 g/dL (12-16); LYMPHOCYTES 16.4 % (15-50); MCH 29.8 pg (26.0-34.0); MCHC 31.2 g/dL (31.0-37.0); MCV 95.4 fL (80.0-100.0); MEAN PLATELET VOLUME 9.1 fL (7.4-10.4); MONOCYTES 8.4 % (2-11); NEUTROPHILS 74.1 % (40-80); PLATELET COUNT 270 10x3/uL (130-400); RBC 3.46 10x6/uL (4.00-5.40); RDW 14.1 % (11.5-14.5); WBC 13.5 10x3/uL (4.8-10.8)
[2018-01-13 06:26] LABS: ALBUMIN 2.9 g/dL (3.4-5.0); ANION GAP 7.9 mmol/L (8-16); BILIRUBIN - TOTAL 0.2 mg/dL (0.2-1.3); CALCIUM 8.5 mg/dL (8.5-10.1); CARBON DIOXIDE 33.7 mmol/L (21.0-32.0); CHOL - HDL RATIO 3.3 ratio (2.3-4.1); CREATININE - SERUM 1.3 mg/dL (0.6-1.3); LDL-HDL RATIO 1.9 ratio (1.5-3.5); POTASSIUM - SERUM 3.6 mmol/L (3.5-5.1); PROTEIN - SERUM 6.6 g/dL (6.4-8.2)
[2018-01-13 08:23] VITALS: BP 109/70
[2018-01-13 11:35] VITALS: BP 142/51
[2018-01-13 21:04] VITALS: BP 140/68
[2018-01-14 05:33] VITALS: BP 133/88
[2018-01-14 05:35] LABS: BASOPHILS 0.1 % (0-2); EOSINOPHILS 0 % (0-7); HEMATOCRIT 34.2 % (36.0-48.0); HEMOGLOBIN 10.7 g/dL (12-16); IMMATURE GRANULOCYTES 1.7 % (0-5); LYMPHOCYTES 18.6 % (15-50); MCH 29.9 pg (26.0-34.0); MCHC 31.3 g/dL (31.0-37.0); MCV 95.5 fL (80.0-100.0); MEAN PLATELET VOLUME 9.3 fL (7.4-10.4); MONOCYTES 7.7 % (2-11); NEUTROPHILS 71.9 % (40-80); PLATELET COUNT 301 10x3/uL (130-400); RBC 3.58 10x6/uL (4.00-5.40); WBC 14.1 10x3/uL (4.8-10.8)
[2018-01-14 06:15] LABS: ALBUMIN 2.9 g/dL (3.4-5.0); ANION GAP 9.2 mmol/L (8-16); BILIRUBIN - TOTAL 0.32 mg/dL (0.2-1.3); CALCIUM 8.3 mg/dL (8.5-10.1); CARBON DIOXIDE 33.9 mmol/L (21.0-32.0); CREATININE - SERUM 1.3 mg/dL (0.6-1.3); MAGNESIUM - SERUM 2.4 mg/dL (1.8-2.4); POTASSIUM - SERUM 4.1 mmol/L (3.5-5.1); PROTEIN - SERUM 6.6 g/dL (6.4-8.2)
[2018-01-14 07:43] VITALS: BP 155/92
[2018-01-14 11:30] VITALS: BP 143/84
[2018-01-14 15:37] VITALS: BP 132/87
[2018-01-14 20:26] VITALS: BP 138/75
[2018-01-15 00:14] VITALS: BP 128/70
[2018-01-15 04:17] LABS: BASOPHILS 0.1 % (0-2); EOSINOPHILS 0 % (0-7); HEMATOCRIT 32.7 % (36.0-48.0); HEMOGLOBIN 10.1 g/dL (12-16); IMMATURE GRANULOCYTES 1.5 % (0-5); LYMPHOCYTES 19.6 % (15-50); MCH 29.3 pg (26.0-34.0); MCHC 30.9 g/dL (31.0-37.0); MCV 94.8 fL (80.0-100.0); MEAN PLATELET VOLUME 9.2 fL (7.4-10.4); MONOCYTES 9.4 % (2-11); NEUTROPHILS 69.4 % (40-80); PLATELET COUNT 254 10x3/uL (130-400); RBC 3.45 10x6/uL (4.00-5.40); WBC 11.4 10x3/uL (4.8-10.8)
[2018-01-15 04:30] VITALS: BP 143/71
[2018-01-15 04:39] LABS: ALBUMIN 2.9 g/dL (3.4-5.0); ANION GAP 6.5 mmol/L (8-16); BILIRUBIN - TOTAL 0.27 mg/dL (0.2-1.3); CALCIUM 8.1 mg/dL (8.5-10.1); CARBON DIOXIDE 36.4 mmol/L (21.0-32.0); CREATININE - SERUM 1.4 mg/dL (0.6-1.3); MAGNESIUM - SERUM 2.4 mg/dL (1.8-2.4); POTASSIUM - SERUM 3.9 mmol/L (3.5-5.1); PROTEIN - SERUM 6.3 g/dL (6.4-8.2)
[2018-01-15 07:46] VITALS: BP 132/80
[2018-01-15 11:52] VITALS: BP 115/74
[2018-01-15 16:00] VITALS: BP 118/59
[2018-01-15 21:01] VITALS: BP 132/69
[2018-01-16 00:58] VITALS: BP 129/71
[2018-01-16 04:46] LABS: BASOPHILS 0.2 % (0-2); EOSINOPHILS 0.2 % (0-7); HEMATOCRIT 33.8 % (36.0-48.0); HEMOGLOBIN 10.4 g/dL (12-16); IMMATURE GRANULOCYTES 2.9 % (0-5); LYMPHOCYTES 25.1 % (15-50); MCH 29.3 pg (26.0-34.0); MCHC 30.8 g/dL (31.0-37.0); MCV 95.2 fL (80.0-100.0); MEAN PLATELET VOLUME 9.4 fL (7.4-10.4); MONOCYTES 10.3 % (2-11); NEUTROPHILS 61.3 % (40-80); PLATELET COUNT 292 10x3/uL (130-400); RBC 3.55 10x6/uL (4.00-5.40); RDW 14.1 % (11.5-14.5); WBC 12.7 10x3/uL (4.8-10.8)
[2018-01-16 05:35] LABS: ALBUMIN 2.7 g/dL (3.4-5.0); ANION GAP 9.1 mmol/L (8-16); BILIRUBIN - TOTAL 0.19 mg/dL (0.2-1.3); CALCIUM 8.1 mg/dL (8.5-10.1); CARBON DIOXIDE 32.7 mmol/L (21.0-32.0); CREATININE - SERUM 1.4 mg/dL (0.6-1.3); MAGNESIUM - SERUM 2.3 mg/dL (1.8-2.4); POTASSIUM - SERUM 3.8 mmol/L (3.5-5.1); PROTEIN - SERUM 6.2 g/dL (6.4-8.2)
[2018-01-16 05:46] VITALS: BP 130/73
[2018-01-16 08:22] VITALS: BP 163/80
[2018-01-16] MEDS ORDERED: LIPITOR10 MG PO (10:56)
[2018-01-16] MEDS ORDERED: SINGULAIR10 MG PO (10:57)
[2018-01-16] MEDS ORDERED: PREDNISONE10 MG PO (10:58)
[2018-01-16] MEDS ORDERED: METOPROLOL TART50 MG PO (11:01)
[2018-01-16] MEDS ORDERED: PLAVIX75 MG PO (11:03)
[2018-01-16 11:04] VITALS: BP 124/67
[2018-01-16] MEDS ORDERED: PERCOCET 10/3251 TA1 PO (11:04)
[2018-01-16] MEDS ORDERED: DURAGESIC1 PATCH .2 TRANSDERM (11:05)
== END 2018-01-16 14:51 | disposition home or self-care (01) | DRG 286 ==
LOC: D.ER 19:39 → D.M2 21:51 → D.EDHOLD 21:51 → D.M2 23:34
PROVIDERS: Emergency Medicine; Family Medicine; Internal Medicine Interventional Cardiology
PROC: B2151ZZ Fluoroscopy of Left Heart using Low Osmolar Contrast (ICD-10-PCS; 2018-01-12)
PROC: 4A023N7 Measurement of Cardiac Sampling and Pressure, Left Heart, Percutaneous Approach (ICD-10-PCS; 2018-01-12)
PROC: B2111ZZ Fluoroscopy of Multiple Coronary Arteries using Low Osmolar Contrast (ICD-10-PCS; principal; 2018-01-12 13:45)
DX: I24.8 Other forms of acute ischemic heart disease (principal); J96.21 Acute and chronic respiratory failure with hypoxia; J96.22 Acute and chronic respiratory failure with hypercapnia; J44.1 Chronic obstructive pulmonary disease with (acute) exacerbation; Z68.42 Body mass index [BMI] 45.0-49.9, adult; T85.628A Displacement of other specified internal prosthetic devices, implants and grafts, initial encounter; I10 Essential (primary) hypertension; I25.10 Atherosclerotic heart disease of native coronary artery without angina pectoris; K21.9 Gastro-esophageal reflux disease without esophagitis; F41.9 Anxiety disorder, unspecified; F32.9 Major depressive disorder, single episode, unspecified; F10.10 Alcohol abuse, uncomplicated; E66.01 Morbid (severe) obesity due to excess calories; Y84.8 Other medical procedures as the cause of abnormal reaction of the patient, or of later complication, without mention of misadventure at the time of the procedure

== ENCOUNTER → 2018-04-28 12:57 | Outpatient (CLI) | payer MEDICARE, MEDICAID ==
[2018-01-12 09:30] VITALS: BMI 48.2
[~2018-04-28 12:57] MED LIST changes: +DURAGESIC1 PATCH .2 TRANSDERM; +LIPITOR10 MG PO; +PERCOCET 10/3251 TA1 PO; +PLAVIX75 MG PO
== END | disposition home or self-care (01) ==
LOC: D.RT 12:57
DX: J44.9 Chronic obstructive pulmonary disease, unspecified (principal); J98.11 Atelectasis

== ENCOUNTER → 2018-06-23 12:47 | Outpatient (CLI) | payer MEDICARE, MEDICAID ==
[~2018-06-23] VITALS: Ht 165.1 cm; Wt 127.3 kg
[2018-06-23 14:35] VITALS: Ht 165.1 cm; Wt 127.3 kg
== END | disposition home or self-care (01) ==
LOC: D.FANS 12:47
DX: E66.01 Morbid (severe) obesity due to excess calories (principal)

== ENCOUNTER → 2018-08-06 08:48 | Day surgery (SDC) | payer MEDICARE, MEDICAID ==
[2018-06-23 14:35] VITALS: BMI 46.6
== END | disposition home or self-care (01) ==
LOC: D.OPS 08:48
PROVIDERS: ATTEND Surgery
DX: E66.01 Morbid (severe) obesity due to excess calories (principal)

== ENCOUNTER → 2018-08-13 11:11 | Outpatient (CLI) | payer MEDICARE, MEDICAID ==
[2018-06-23 14:35] VITALS: BMI 46.6
== END | disposition home or self-care (01) ==
LOC: D.OPS 11:11
PROVIDERS: ATTEND Surgery
DX: E66.01 Morbid (severe) obesity due to excess calories (principal)

== ENCOUNTER → 2018-08-18 12:57 | Outpatient (CLI) | payer MEDICARE, MEDICAID ==
[2018-06-23 14:35] VITALS: BMI 46.6
[2018-08-18 13:24] LABS: BASOPHILS 0.1 % (0-2); EOSINOPHILS 4.6 % (0-7); HEMATOCRIT 38.3 % (36.0-48.0); IMMATURE GRANULOCYTES 0.2 % (0-5); LYMPHOCYTES 13.9 % (15-50); MCHC 31.3 g/dL (31.0-37.0); MCV 92.5 fL (80.0-100.0); MEAN PLATELET VOLUME 9.1 fL (7.4-10.4); MONOCYTES 6.1 % (2-11); NEUTROPHILS 75.1 % (40-80); PLATELET COUNT 253 10x3/uL (130-400); RBC 4.14 10x6/uL (4.00-5.40); RDW 14.5 % (11.5-14.5); WBC 12.8 10x3/uL (4.8-10.8)
[2018-08-18 13:37] LABS: CALCIUM 7.6 mg/dL (8.5-10.1); CARBON DIOXIDE 31.2 mmol/L (21.0-32.0); CREATININE - SERUM 1.5 mg/dL (0.6-1.3); MAGNESIUM - SERUM 2.2 mg/dL (1.8-2.4); PHOSPHOROUS 3.1 mg/dL (2.5-4.9); POTASSIUM - SERUM 4.2 mmol/L (3.5-5.1)
== END | disposition home or self-care (01) ==
LOC: D.LAB 12:57
PROVIDERS: ATTEND Internal Medicine Pulmonary Disease
DX: D80.3 Selective deficiency of immunoglobulin G [IgG] subclasses (principal); I50.30 Unspecified diastolic (congestive) heart failure

== ENCOUNTER 2018-10-15 17:04 | Inpatient (IN) | payer MEDICARE, MEDICAID ==
[2018-10-23 13:26] LABS: ANION GAP 10.4 mmol/L (8-16); CALCIUM 9.4 mg/dL (8.5-10.1); CARBON DIOXIDE 32.4 mmol/L (21.0-32.0); CREATININE - SERUM 1.2 mg/dL (0.6-1.3); POTASSIUM - SERUM 3.8 mmol/L (3.5-5.1)
[2018-10-23 13:27] LABS: HEMATOCRIT 36.6 % (36.0-48.0); HEMOGLOBIN 11.9 g/dL (12-16); MCH 29.4 pg (26.0-34.0); MCHC 32.5 g/dL (31.0-37.0); MCV 90.4 fL (80.0-100.0); MEAN PLATELET VOLUME 8.8 fL (7.4-10.4); RBC 4.05 10x6/uL (4.00-5.40); RDW 14.7 % (11.5-14.5); WBC 7.6 10x3/uL (4.8-10.8)
[2018-10-26] MEDS ORDERED: CARAFATE1 G PO (06:36)
[2018-10-26 06:38] VITALS: BP 134/61; BMI 50.8
[2018-10-26 11:27] VITALS: BP 147/71
--- NOTE | 2018-10-26 15:01 | NUR ---
PT RECIEVED FROM OR. NO SIGNS OF DISTRESS. IV TO RIGHT HAND PATENT NO REDNESS OR TENDERNESS. ON 8L NC. HAS 5 LAP SITES CLEAN AND INTACT. DENIES ANY NEED AT THIS TIME. CALL LIGHT IN REACH. BED LOW POSITION. NO FAMILY AT BEDSIDE.
[2018-10-26 17:58] VITALS: BMI 50.6
[2018-10-26 18:29] VITALS: BP 106/70
--- NOTE | 2018-10-26 23:03 | NUR ---
I have reviewed this patient and I concur with the Shift Assessment completed by the Licensed Practical Nurse today this shift.
[2018-10-27] VITALS: BP 145/103
--- NOTE | 2018-10-27 04:11 | NUR ---
2200)STOOD AT BEDSIDE WITH MAX. ASSIST OF MALE PAD MACHINE OPERATOR AND NURSE.ATTEMPTED TO GO AROUND BED TO DOORWAY.BECAME VERY TIRED.ASSISTED TO BATHROOM VOIDED LGE AMT.STATES CAN'T BELIEVE THEY MAKE YOU GET UP JUST HOURS AFTER YOUR SURGERY.EXPLAINED WAS ORDERED BY . WILL CONTINUE TO MONITOR FOR ANY CHGES. AND FOLLOW CURRENT PLAN OF CARE.
[2018-10-27 04:30] VITALS: BP 120/59
[2018-10-27 05:15] LABS: BASOPHILS 0.2 % (0-2); EOSINOPHILS 4.2 % (0-7); HEMATOCRIT 33.8 % (36.0-48.0); HEMOGLOBIN 10.4 g/dL (12-16); IMMATURE GRANULOCYTES 0.2 % (0-5); LYMPHOCYTES 23.4 % (15-50); MCH 28.7 pg (26.0-34.0); MCHC 30.8 g/dL (31.0-37.0); MCV 93.1 fL (80.0-100.0); MEAN PLATELET VOLUME 9.3 fL (7.4-10.4); MONOCYTES 9.5 % (2-11); NEUTROPHILS 62.5 % (40-80); PLATELET COUNT 277 10x3/uL (130-400); RBC 3.63 10x6/uL (4.00-5.40); WBC 9.3 10x3/uL (4.8-10.8)
[2018-10-27 05:48] LABS: ALBUMIN 3.2 g/dL (3.4-5.0); ANION GAP 12.5 mmol/L (8-16); BILIRUBIN - TOTAL 0.45 mg/dL (0.2-1.3); CALCIUM 8.6 mg/dL (8.5-10.1); CARBON DIOXIDE 29.6 mmol/L (21.0-32.0); CREATININE - SERUM 1.2 mg/dL (0.6-1.3); POTASSIUM - SERUM 4.1 mmol/L (3.5-5.1); PROTEIN - SERUM 6.8 g/dL (6.4-8.2)
[2018-10-27 07:00] VITALS: BP 105/53
--- NOTE | 2018-10-27 08:03 | NUR ---
PT SLEEPING,WITHOUT DISTRESS.CALL LIGHT IN REACH
[2018-10-27 11:00] VITALS: BP 141/60
--- NOTE | 2018-10-27 14:02 | NUR ---
Rehab Note- Acute Inpatient REhab prescreen order received. The patient has [facility] insurance and will require a PreAuth prior to an inpatient acute rehab stay. Has a pending OT Eval, will need for the PreAuth process. Will begin the PreAuth process. Will follow at this time. Thank you for this referral! Hannah Alonzo RN Clinical Liaison, [facility] Rehab
--- NOTE | 2018-10-27 15:06 | NUR ---
OT NOTE: PT COMPLETED SIT TO STAND AND ADL MOB WITH SBA/CGA. PT COMPLETED HYGIENE TASKS WITH SBA. THANK YOU, KAMARI BLAIR
[2018-10-27 15:34] VITALS: BMI 50.5
--- NOTE | 2018-10-27 15:38 | MORECARE ---
CASE MANAGEMENT DISCHARGE SUMMARY PATIENT: ABIMAEL BRITTON KATLYN UNIT: [id number] ADM DATE: 10/26/18 AGE: 67 : [birth year] SEX: F ROOM/BED: D.2226 AUTHOR: CHALINO,DOC PHYSICIAN: REFERRING PHYSICIAN: AKILA KURTZ MD DATE OF SERVICE: 10/27/18 Discharge Plan Patient Name: ABIMAEL BRITTON Facility: [facility]:[place] : 1950 Planned Disposition: Home Anticipated Discharge Date: Discharge Date: Expected LOS: Initial Reviewer: [email or web address] Initial Review Date: 10/27/2018 Generated: 10/27/18 4:38 pm Comments DCP- Discharge Planning Updated by [email or web address]: Charley Huitron on 10/27/18 2:[address] Patient Name: ABIMAEL BRITTON Admission Status: Elective Accout number: [id number] Admission Date: 10-26-2018 : 1950 Admission Diagnosis: Attending: AKILA KURTZ Current LOS: 1 Anticipated DC Date: Planned Disposition: Home Primary Insurance: [facility] [employer] Discharge Planning Comments: CM met with patient to complete initial dc planning assessment. Her spouse is in the room and verbal permission received to discuss discharge planning with spouse in room. CM educated patient on the CM role and verbal consent given by patient to complete assessment. Patient lives at home with her spouse and daughter (Lizzy). At discharge patient plans to return and feels this is a safe discharge. CM discussed availability of home health, rehab services, and medical equipment. Patient denied known discharge needs at this time. States her will take her home on discharge. Declines home health offered. CM will continue to follow and will assist as needed with dc plans/needs. Curriculum And Assessment Director: Charley Huitron DCPIA - Discharge Planning Initial Assessment Updated by [email or web address]: Charley Huitron on 10/27/18 3:30 pm * Is the patient Alert and Oriented? Yes * How many steps to enter\\exit or inside your home? 2/0 * PCP See's [facility] at [facility] * Pharmacy [place] * Preadmission Environment Home with Family * ADLs Independent * Equipment Cane CPAP Elevated [place] Seat Other Oxygen Shower Chair Walker * Other Equipment Portable oxygen * List name and contact numbers for known caregivers / representatives who currently or will assist patient after discharge: Jesu Britton - spouse - [phone] Lizzy Montano - DTR - [phone] * Verbal permission to speak to the caregivers and representatives has been obtained from the patient. Yes * Community resources currently utilized None * Please name any agencies selected above. DME is [employer] for oxygen supplies * Additional services required to return to the preadmission environment? No * Can the patient safely return to the preadmission environment? Yes * Has this patient been hospitalized within the prior 30 days at any hospital? No Patient Name: ABIMAEL BRITTON Page [id number] at 1538 All edits/amendments must be made on the electronic document DICTATION DATE: 10/27/181536 SOFTWARE PERFORMANCE ENGINEER: SHARMILA 10/27/181536 RPT#: [id number] DC DATE: STATUS: ADM IN [facility] [address] [place] [address] END OF REPORT
--- NOTE | 2018-10-27 16:37 | NUR ---
Rehab Note- PreAuth has been initiated with [facility]. Will continue to follow at this time. Thank you for this referral! Hannah Alonzo RN Clinical Liaison, [facility] Rehab
[2018-10-27 17:11] VITALS: BP 102/72
[2018-10-27 20:00] VITALS: BP 147/65
[2018-10-28] VITALS: BP 119/64
[2018-10-28 04:00] VITALS: BP 137/75
--- NOTE | 2018-10-28 04:22 | NUR ---
I have reviewed this patient and I concur with the Shift Assessment completed by the Licensed Practical Nurse today this shift.
[2018-10-28 06:47] LABS: BASOPHILS 0.1 % (0-2); EOSINOPHILS 5.3 % (0-7); HEMATOCRIT 30.7 % (36.0-48.0); HEMOGLOBIN 9.6 g/dL (12-16); IMMATURE GRANULOCYTES 0.2 % (0-5); LYMPHOCYTES 23.9 % (15-50); MCHC 31.3 g/dL (31.0-37.0); MCV 92.7 fL (80.0-100.0); MEAN PLATELET VOLUME 9.1 fL (7.4-10.4); MONOCYTES 12.9 % (2-11); NEUTROPHILS 57.6 % (40-80); PLATELET COUNT 228 10x3/uL (130-400); RBC 3.31 10x6/uL (4.00-5.40); WBC 8.2 10x3/uL (4.8-10.8)
[2018-10-28 07:02] LABS: ANION GAP 10.1 mmol/L (8-16); CALCIUM 8.6 mg/dL (8.5-10.1); CARBON DIOXIDE 30.5 mmol/L (21.0-32.0); CREATININE - SERUM 0.9 mg/dL (0.6-1.3); POTASSIUM - SERUM 3.6 mmol/L (3.5-5.1)
--- NOTE | 2018-10-28 08:00 | NUR ---
PT SITTING UP IN CHAIR AT BEDSIDE. NO ACUTE DISTRESS. ASSISTED BACK TO BED AT THIS TIME. BECOMES SOB WITH EXERTION. O2 @ 4L NC IN PLACE. IV TO RIGHT HAND WITH LR @ 50 ML/HR INFUSING VIA PUMP. SITE WITHOUT REDNESS OR EDEMA. DOES REPORT PAIN 8/10 AT THIS TIME. DISCUSSED PAIN MEDICATION REGIMEN. PAIN MED TO BE ADMINISTERED PER MD ORDERS. LAP SITES TO ABDOMEN X 6, SITES WITHOUT REDNESS OR DRAINAGE. DENIES FURTHER NEEDS AT THIS TIME. CL WITHIN REACH. ENOCURAGED TO CALL WITH NEEDS. CONTINUE POC
[2018-10-28 08:54] VITALS: BP 150/69
--- NOTE | 2018-10-28 11:41 | NUR ---
OT NOTE: PT SEEN IN AM; PT WAS IN BED AND REQUIRED MOD ASSIST FOR BED MOB DUE TO ABD PAIN. PT STATES THAT SHE SAT UP FOR AN HOUR THIS AM ALREADY. SIT TO STAND WITH USE OF WALKER AND CGA; ABLE TO AMB WITH USE OF IV, 02, GAIT BELT, AND WALKER WITH CGA X 100+ FT. IN ROOM AMBULATION WITH CGA TO BATHROOM. SBA FOR TOILET HYGIENE; SBA FOR SIMPLE GROOMING. PT PROVIDED WITH MORE COMFORTABLE CHAIR AND SHE SAT UP FOR APPROX 30 MIN PRIOR TO LIEING BACK DOWN AGAIN. PADMA ZARAGOZA, OTR/L
--- NOTE | 2018-10-28 12:30 | NUR ---
ASSISTED PT WITH AMBULATING AROUND NURSES DESK WITH WALKER. PT DON WELL. DENIES PAIN AT THIS TIME. ASSISTED BACK TO BED. O2 IN PLACE. CL WITHIN REACH.
[2018-10-28 12:43] VITALS: BP 150/90
[2018-10-28] MEDS ORDERED: HYDROCODON-ACE1 EAC7 PO (13:01)
[2018-10-28] MEDS ORDERED: ZOFRAN ODT4 MG/UDTAB PO (13:01)
--- NOTE | 2018-10-28 15:56 | MORECARE ---
CASE MANAGEMENT DISCHARGE SUMMARY PATIENT: ABIMALE BRITTON KATLYN UNIT: [id number] ADM DATE: 10/26/18 AGE: 67 : 49 SEX: F ROOM/BED: D.2226 AUTHOR: CHALINO,DOC PHYSICIAN: REFERRING PHYSICIAN: AKILA KURTZ MD DATE OF SERVICE: 10/28/18 Discharge Plan Patient Name: ABIMAEL BRITTON Facility: [facility]:[place] : 1950 Planned Disposition: Home Anticipated Discharge Date: Discharge Date: 10/28/2018 Expected LOS: Initial Reviewer: [email or web address] Initial Review Date: 10/27/2018 Generated: 10/28/18 4:56 pm Comments DCP- Discharge Planning Updated by [email or web address]: Charley Huitron on 10/28/18 2:[address] Patient Name: ABIMAEL BRITTON Encounter No: [id number] : 1950 Primary Insurance: [facility] MEDICARE SOLUTIONS Anticipated DC Date: Planned Disposition: Home External Planned Provider: : DCP follow-up note: Patient and family in agreement with discharge plan. No changes to plan. Case management will follow and assist as needed. Charley Tomy DCP- Discharge Planning Updated by [email or web address]: Charley Tomy on 10/27/18 2:[address] Patient Name: ABIMAEL BRITTON Admission Status: Elective Accout number: [id number] Admission Date: 10-26-2018 : 1950 Admission Diagnosis: Attending: AKILA KURTZ Current LOS: 1 Anticipated DC Date: Planned Disposition: Home Primary Insurance: [facility] MEDICARE SOLUTIONS Discharge Planning Comments: CM met with patient to complete initial dc planning assessment. Her spouse is in the room and verbal permission received to discuss discharge planning with spouse in room. CM educated patient on the CM role and verbal consent given by patient to complete assessment. Patient lives at home with her spouse and daughter (Lizzy). At discharge patient plans to return and feels this is a safe discharge. CM discussed availability of home health, rehab services, and medical equipment. Patient denied known discharge needs at this time. States her will take her home on discharge. Declines home health offered. CM will continue to follow and will assist as needed with dc plans/needs. Assessment Analyst: Charley Tomy DCPIA - Discharge Planning Initial Assessment Updated by [email or web address]: Charley Tomy on 10/27/18 3:30 pm * Is the patient Alert and Oriented? Yes * How many steps to enter\\exit or inside your home? 2/0 * PCP [facility] at [facility] * Pharmacy [place] * Preadmission Environment Home with Family * ADLs Independent * Equipment Cane CPAP Elevated [place] Seat Other Oxygen Shower Chair Walker * Other Equipment Portable oxygen * List name and contact numbers for known caregivers / representatives who currently or will assist patient after discharge: Jesu Britton - spouse - [phone] Lizzy Montano - DTR - [phone] * Verbal permission to speak to the caregivers and representatives has been obtained from the patient. Yes * Community resources currently utilized None * Please name any agencies selected above. DME is [facility] company for oxygen supplies * Additional services required to return to the preadmission environment? No * Can the patient safely return to the preadmission environment? Yes * Has this patient been hospitalized within the prior 30 days at any hospital? No Last DP export: 10/27/18 2:38 pm Patient Name: ABIMAEL BRITTON Page 10254 at 1556 All edits/amendments must be made on the electronic document DICTATION DATE: 10/28/181555 DISPATCH SPECIALIST: SHARMILA 10/28/18 1556 RPT#: [id number] DC DATE:10/28/18 STATUS: DIS IN [facility] [address] [place] [address] END OF REPORT
--- NOTE | 2018-10-29 09:44 | NUR ---
Rehab Note- REceived call from Elena Peña that the patient has been denied an inpatient acute rehab stay. A peer to peer could be set up by 10/30/18 @ 1500, but the patient has already been discharged home. Thank you for this referral! Hannah Alonzo RN Clinical Liaison, [facility] Rehab
--- NOTE | 2018-11-03 09:34 | MORECARE ---
CASE MANAGEMENT DISCHARGE SUMMARY PATIENT: ABIMAEL BRITTON KATLYN UNIT: [id number] ADM DATE: 10/26/18 AGE: 67 : 49 SEX: F ROOM/BED: D.2226 AUTHOR: CHALINO,DOC PHYSICIAN: REFERRING PHYSICIAN: AKILA KURTZ MD DATE OF SERVICE: 11/03/18 Discharge Plan Patient Name: ABIMAEL BRITTON Facility: [facility]:[place] : 1950 Planned Disposition: Home Anticipated Discharge Date: Discharge Date: 10/28/2018 Expected LOS: 0 Initial Reviewer: [email or web address] Initial Review Date: 10/27/2018 Generated: 11/03/18 10:34 am Comments DCP- Discharge Planning Updated by [email or web address]: Charley Huitron on 10/28/18 2:[address] Patient Name: ABIMAEL BRITTON Encounter No: [id number] : 1950 Primary Insurance: [facility] MEDICARE SOLUTIONS Anticipated DC Date: Planned Disposition: Home External Planned Provider: : DCP follow-up note: Patient and family in agreement with discharge plan. No changes to plan. Case management will follow and assist as needed. Charley Tomy DCP- Discharge Planning Updated by [email or web address]: Charley Tomy on 10/27/18 2:[address] Patient Name: ABIMAEL BRITTON Admission Status: Elective Accout number: [id number] Admission Date: 10-26-2018 : 1950 Admission Diagnosis: Attending: AKILA KURTZ Current LOS: 1 Anticipated DC Date: Planned Disposition: Home Primary Insurance: [facility] MED[employer] SOLUTIONS Discharge Planning Comments: CM met with patient to complete initial dc planning assessment. Her spouse is in the room and verbal permission received to discuss discharge planning with spouse in room. CM educated patient on the CM role and verbal consent given by patient to complete assessment. Patient lives at home with her spouse and daughter (Lizzy). At discharge patient plans to return and feels this is a safe discharge. CM discussed availability of home health, rehab services, and medical equipment. Patient denied known discharge needs at this time. States her will take her home on discharge. Declines home health offered. CM will continue to follow and will assist as needed with dc plans/needs. Biomathematician: Charley Huitron DCPIA - Discharge Planning Initial Assessment Updated by [email or web address]: Charley Carriondennis on 10/27/18 3:30 pm * Is the patient Alert and Oriented? Yes * How many steps to enter\\exit or inside your home? 2/0 * PCP See[facility] at [facility] * Pharmacy [place] * Preadmission Environment Home with Family * ADLs Independent * Equipment Cane CPAP Elevated [place] Seat Other Oxygen Shower Chair Walker * Other Equipment Portable oxygen * List name and contact numbers for known caregivers / representatives who currently or will assist patient after discharge: Jesu Britton - spouse - [phone] Lizzy Montano - DTR - [phone] * Verbal permission to speak to the caregivers and representatives has been obtained from the patient. Yes * Community resources currently utilized None * Please name any agencies selected above. [facility] * Additional services required to return to the preadmission environment? No * Can the patient safely return to the preadmission environment? Yes * Has this patient been hospitalized within the prior 30 days at any hospital? No Last DP export: 10/28/18 2:56 pm Patient Name: ABIMAEL BRITTON Page 43523 at 0934 All edits/amendments must be made on the electronic document DICTATION DATE: 11/03/18933 WIRER PASSENGER CAR: SHARMILA 11/03/18933 RPT#: [id number] DC DATE:10/28/18 STATUS: DIS IN [facility] [address] [place] [address] END OF REPORT
== END 2018-10-28 14:59 | disposition home or self-care (01) | DRG 621 ==
LOC: D.SDCHOLD 10-26 06:00 → D.MS 10-26 11:08
PROVIDERS: Anesthesiology; ADMIT Surgery; ATTEND Surgery
PROC: 0DB64Z3 Excision of Stomach, Percutaneous Endoscopic Approach, Vertical (ICD-10-PCS; principal; 2018-10-26 08:00)
DX: E66.01 Morbid (severe) obesity due to excess calories (principal); Z68.42 Body mass index [BMI] 45.0-49.9, adult; J44.9 Chronic obstructive pulmonary disease, unspecified; K21.9 Gastro-esophageal reflux disease without esophagitis; G47.33 Obstructive sleep apnea (adult) (pediatric); M19.90 Unspecified osteoarthritis, unspecified site; I12.9 Hypertensive chronic kidney disease with stage 1 through stage 4 chronic kidney disease, or unspecified chronic kidney disease; N18.9 Chronic kidney disease, unspecified

== ENCOUNTER → 2019-03-31 12:25 | Outpatient (CLI) | payer MEDICARE, MEDICAID ==
[~2019-03-31 12:25] MED LIST changes: +CARAFATE1 G PO; +HYDROCODON-ACE1 EAC7 PO; +ZOFRAN ODT4 MG/UDTAB PO
== END | disposition home or self-care (01) ==
LOC: D.RT 12:25
PROVIDERS: ATTEND Internal Medicine Pulmonary Disease
DX: J44.9 Chronic obstructive pulmonary disease, unspecified (principal)

== ENCOUNTER 2020-08-02 16:44 | Outpatient (CLI) | payer MEDICARE, MEDICAID | END 2020-08-02 23:59 | disposition home or self-care (01) | LOC: D.MAMMO 16:44 | PROVIDERS: ATTEND Clinical Nurse Specialist Adult Health | DX: Z12.31 Encounter for screening mammogram for malignant neoplasm of breast (principal) ==

== ENCOUNTER → 2020-09-29 13:29 | Outpatient (CLI) | payer MEDICARE, MEDICAID | END | disposition home or self-care (01) | LOC: D.RT 13:29 | PROVIDERS: ATTEND Internal Medicine Pulmonary Disease | DX: J44.9 Chronic obstructive pulmonary disease, unspecified (principal); Z11.52 Encounter for screening for COVID-19 ==